=== PATIENT | female | born 1955 | race Asian ===

== ENCOUNTER 2016-12-26 14:18 | Inpatient (IN) | payer OTHER ==
[~2016-12-26] VITALS: Ht 160 cm; Wt 69.4 kg
[2016-12-26 15:34] LABS: BASOPHIL % 0.4 % (0-2); PLATELET COUNT 191 x10^3mcL (130-400); RED CELL DISTRIBUTION WIDTH 13.1 % (11.5-14.5)
[2016-12-26 15:36] LABS: microscopic required? NO
[2016-12-26 15:46] LABS: UA SPECIFIC GRAVITY <=1.005 (1.005-1.035); urine erythrocyte NEGATIVE (NEGATIVE)
[2016-12-26 15:47] LABS: ALBUMIN 3.4 g/dL (3.4-5.0); ALKALINE PHOSPHATASE 105 U/L (46-116); ALT/SGPT 28 U/L (14-59); AMYLASE 52 U/L (25-115); AST/SGOT 18 U/L (15-37); BILIRUBIN TOTAL 0.7 mg/dL (0.20-1.00); CALCIUM 9.1 mg/dL (8.5-10.1); CARBON DIOXIDE 28.4 mmol/L (21-32); CHLORIDE SERUM 102 mmol/L (98-107); CREATININE SERUM 0.7 mg/dL (0.6-1.0); GFR1 > 60 mL/min; GLUCOSE SERUM 168 mg/dL (74-106); LIPASE 228 IU/L (73-393); SODIUM SERUM 139 mmol/L (136-145); TOTAL PROTEIN, SERUM 7.1 g/dL (6.4-8.2)
[2016-12-26 15:48] LABS: CHOLESTEROL 205 mg/dL (<200); HDL CHOLESTEROL 63 mg/dL (40-60)
[2016-12-26 15:49] LABS: POTASSIUM SERUM 2.9 mmol/L (3.5-5.1)
[2016-12-26] MEDS ORDERED: AZITHROMYCIN250 M1 PO (17:10)
[2016-12-26] MEDS ORDERED: ROBAFEN100 MG/5 M PO (17:11)
[2016-12-26] MEDS ORDERED: LEVO-T50 MCG PO (18:53)
[2016-12-26 19:23] VITALS: BP 157/95
[2016-12-26 20:36] VITALS: BP 157/95
[2016-12-26 20:56] LABS: MAGNESIUM 2.1 mg/dL (1.8-2.4); PHOSPHOROUS 2.8 mg/dL (2.5-4.9)
[2016-12-26 21:04] LABS: T3 TOTAL 1.1 ng/mL
[2016-12-26 21:07] LABS: FREE T4 0.84 ng/dL (0.76-1.46); FREE THYROXINE INDEX 1.7 ug/dL (1.4-4.5); T4(THYROXINE) 5.3 ug/dL (4.7-13.3)
[2016-12-27 05:29] VITALS: BP 110/66
[2016-12-27 06:53] LABS: BASOPHIL % 0.1 % (0-2); PLATELET COUNT 200 x10^3mcL (130-400); RED CELL DISTRIBUTION WIDTH 13.3 % (11.5-14.5)
[2016-12-27 07:13] LABS: CARBON DIOXIDE 20.7 mmol/L (21-32); CHLORIDE SERUM 108 mmol/L (98-107); CREATININE SERUM 0.8 mg/dL (0.6-1.0); GFR1 > 60 mL/min; GLUCOSE SERUM 200 mg/dL (74-106); PHOSPHOROUS 3.1 mg/dL (2.5-4.9); POTASSIUM SERUM 3.9 mmol/L (3.5-5.1); SODIUM SERUM 141 mmol/L (136-145)
[2016-12-27 09:30] VITALS: BP 136/66
[2016-12-27 13:27] VITALS: BP 131/74
[2016-12-27 17:05] VITALS: BP 118/60
[2016-12-27 21:33] VITALS: BP 106/56
[2016-12-28 05:28] VITALS: BP 122/65
[2016-12-28 06:52] LABS: CALCIUM 8.7 mg/dL (8.5-10.1); CARBON DIOXIDE 25.3 mmol/L (21-32); CHLORIDE SERUM 109 mmol/L (98-107); CREATININE SERUM 0.7 mg/dL (0.6-1.0); GFR1 > 60 mL/min; GLUCOSE SERUM 154 mg/dL (74-106); POTASSIUM SERUM 3.9 mmol/L (3.5-5.1); SODIUM SERUM 144 mmol/L (136-145)
[2016-12-28 07:04] LABS: BASOPHIL % 0.2 % (0-2); PLATELET COUNT 191 x10^3mcL (130-400); RED CELL DISTRIBUTION WIDTH 13.2 % (11.5-14.5)
[2016-12-28 09:30] VITALS: BP 122/70
[2016-12-28 12:50] VITALS: BP 105/80
[2016-12-28 17:31] VITALS: BP 110/64
[2016-12-28 21:09] VITALS: Ht 160 cm; Wt 69.4 kg
[2016-12-28 22:14] VITALS: BP 116/64
[2016-12-29 06:26] LABS: CALCIUM 8.4 mg/dL (8.5-10.1); CHLORIDE SERUM 110 mmol/L (98-107); CREATININE SERUM 0.8 mg/dL (0.6-1.0); GFR1 > 60 mL/min; GLUCOSE SERUM 90 mg/dL (74-106); MAGNESIUM 2.2 mg/dL (1.8-2.4); PHOSPHOROUS 3.9 mg/dL (2.5-4.9); POTASSIUM SERUM 4.2 mmol/L (3.5-5.1); SODIUM SERUM 144 mmol/L (136-145)
[2016-12-29 06:32] VITALS: BP 135/83
[2016-12-29 06:33] LABS: BASOPHIL % 0.2 % (0-2); PLATELET COUNT 184 x10^3mcL (130-400); RED CELL DISTRIBUTION WIDTH 13.4 % (11.5-14.5)
[2016-12-29 10:03] VITALS: BP 124/76
[2016-12-29 13:56] VITALS: BP 124/76
[2016-12-29 14:14] VITALS: BP 124/78
[2016-12-29] MEDS ORDERED: CLEOCIN HCL300 MG PO (14:14)
[2016-12-29] MEDS ORDERED: LEVAQUIN750 MG PO (14:14)
[2016-12-29] MEDS ORDERED: LAC PO (14:15)
[2016-12-29] MEDS ORDERED: MUCINEX600 MG PO (14:16)
[2016-12-29] MEDS ORDERED: IPRATROPIUM BROM3 M2 HHN (14:17)
[2016-12-29] MEDS ORDERED: ZES10 PO (14:20)
== END 2016-12-29 16:30 | disposition home or self-care (01) | DRG 137 ==
LOC: ED 14:18 → DU 15:03
PROVIDERS: Emergency Medicine; Family Medicine; ADMIT Family Medicine
DX: J69.0 Pneumonitis due to inhalation of food and vomit (principal); J45.901 Unspecified asthma with (acute) exacerbation; I10 Essential (primary) hypertension; E87.6 Hypokalemia; E78.5 Hyperlipidemia, unspecified; R73.03 Prediabetes; E03.9 Hypothyroidism, unspecified; J44.9 Chronic obstructive pulmonary disease, unspecified; Z88.6 Allergy status to analgesic agent; Z88.0 Allergy status to penicillin; Z88.2 Allergy status to sulfonamides; Z98.890 Other specified postprocedural states; R09.02 Hypoxemia
CPT/HCPCS: 36600; 83880; 84439; 94150; J1956; J2920; J2930; J3480; J3490; J7030; J7040; J7613; J7620; J7644; Q0092

== ENCOUNTER 2016-12-31 21:10 | Emergency (ER) | payer OTHER ==
[~2016-12-31 21:10] MED LIST: AZITHROMYCIN250 M1 PO; CLEOCIN HCL300 MG PO; IPRATROPIUM BROM3 M2 HHN; LAC PO; LEVAQUIN750 MG PO; LEVO-T50 MCG PO; MUCINEX600 MG PO; ROBAFEN100 MG/5 M PO; ZES10 PO
[2016-12-31 22:09] LABS: PLATELET COUNT 247 x10^3mcL (130-400); RED CELL DISTRIBUTION WIDTH 13.1 % (11.5-14.5)
[2016-12-31 22:19] LABS: CALCIUM 8.8 mg/dL (8.5-10.1); CARBON DIOXIDE 29.4 mmol/L (21-32); CHLORIDE SERUM 102 mmol/L (98-107); CREATININE SERUM 0.7 mg/dL (0.6-1.0); GFR1 > 60 mL/min; GLUCOSE SERUM 106 mg/dL (74-106); POTASSIUM SERUM 3.9 mmol/L (3.5-5.1); SODIUM SERUM 140 mmol/L (136-145)
[2016-12-31 22:27] LABS: ALBUMIN 3.3 g/dL (3.4-5.0); ALKALINE PHOSPHATASE 98 U/L (46-116); ALT/SGPT 26 U/L (14-59); AST/SGOT 17 U/L (15-37); BASOPHIL 0 % (0-2); BILIRUBIN TOTAL 0.3 mg/dL (0.20-1.00); MONOCYTE 6 % (0-7); SEGMENTED NEUTROPHILS 45 % (37-75); TOTAL PROTEIN, SERUM 6.8 g/dL (6.4-8.2)
[2016-12-31 22:28] LABS: BAND NEUTROPHIL 3 % (0-10); PLATELET MORPHOLOGY PLATELETS NORMAL
[2016-12-31 22:37] LABS: CK-MB 0.8 ng/mL (0-3.6)
[2016-12-31 23:50] VITALS: BP 113/73
== END 2016-12-31 23:50 | disposition home or self-care (01) ==
LOC: ED 21:10
PROVIDERS: Emergency Medicine
DX: J45.909 Unspecified asthma, uncomplicated (principal); Z88.0 Allergy status to penicillin; Z88.2 Allergy status to sulfonamides; Z88.6 Allergy status to analgesic agent
CPT/HCPCS: 83880; J7512; J7613; J7644; Q0092

== ENCOUNTER 2017-10-14 23:07 | Emergency (ER) | payer OTHER ==
[~2017-10-14] VITALS: Ht 160 cm; Wt 62.6 kg
[2017-10-14 23:21] VITALS: Ht 160 cm; Wt 62.6 kg
[2017-10-15 00:06] LABS: BASOPHIL % 0.3 % (0-2); PLATELET COUNT 168 x10^3mcL (130-400); RED CELL DISTRIBUTION WIDTH 14.9 % (11.5-14.5)
[2017-10-15 00:18] LABS: CALCIUM 7.9 mg/dL (8.5-10.1); CARBON DIOXIDE 25.6 mmol/L (21-32); CHLORIDE SERUM 99 mmol/L (98-107); CREATININE SERUM 0.8 mg/dL (0.6-1.0); GFR1 > 60 mL/min; GLUCOSE SERUM 161 mg/dL (74-106); POTASSIUM SERUM 3.7 mmol/L (3.5-5.1); SODIUM SERUM 135 mmol/L (136-145)
[2017-10-15 00:22] LABS: ALBUMIN 3.5 g/dL (3.4-5.0); ALKALINE PHOSPHATASE 79 U/L (46-116); ALT/SGPT 29 U/L (14-59); AST/SGOT 26 U/L (15-37); BILIRUBIN TOTAL 0.3 mg/dL (0.20-1.00); TOTAL PROTEIN, SERUM 6.4 g/dL (6.4-8.2)
[2017-10-15 03:28] VITALS: BP 133/79
== END 2017-10-15 03:28 | disposition home or self-care (01) ==
LOC: ED 23:07
PROVIDERS: Emergency Medicine
DX: J10.1 Influenza due to other identified influenza virus with other respiratory manifestations (principal); B34.9 Viral infection, unspecified; Z88.0 Allergy status to penicillin; Z88.2 Allergy status to sulfonamides; Z88.6 Allergy status to analgesic agent
CPT/HCPCS: 87804; J2270; J2765; J7040

== ENCOUNTER 2019-01-31 23:34 | Emergency (ER) | payer OTHER ==
[~2019-01-31] VITALS: Ht 160 cm; Wt 60.8 kg
[2019-01-31 23:56] VITALS: Ht 160 cm; Wt 60.8 kg
[2019-02-01 01:27] LABS: BASOPHIL % 0.3 % (0-2); PLATELET COUNT 243 x10^3mcL (130-400); RED CELL DISTRIBUTION WIDTH 13.1 % (11.5-14.5)
[2019-02-01 01:36] LABS: CALCIUM 8.8 mg/dL (8.5-10.1); CARBON DIOXIDE 27.7 mmol/L (21-32); CHLORIDE SERUM 106 mmol/L (98-107); CREATININE SERUM 0.7 mg/dL (0.6-1.0); GFR1 > 60 mL/min; GLUCOSE SERUM 123 mg/dL (74-106); POTASSIUM SERUM 3.8 mmol/L (3.5-5.1); SODIUM SERUM 141 mmol/L (136-145)
[2019-02-01 01:40] LABS: ALKALINE PHOSPHATASE 109 U/L (46-116); ALT/SGPT 29 U/L (14-59); AST/SGOT 18 U/L (15-37); BILIRUBIN TOTAL 0.3 mg/dL (0.20-1.00); LIPASE 250 IU/L (73-393); TOTAL PROTEIN, SERUM 7.2 g/dL (6.4-8.2)
[2019-02-01 01:41] LABS: ALBUMIN 3.2 g/dL (3.4-5.0)
[2019-02-01 05:42] VITALS: BP 108/71
== END 2019-02-01 05:42 | disposition home or self-care (01) ==
LOC: ED 23:34
DX: R10.32 Left lower quadrant pain (principal); R19.7 Diarrhea, unspecified; J40 Bronchitis, not specified as acute or chronic; R07.9 Chest pain, unspecified; Z88.0 Allergy status to penicillin; Z88.2 Allergy status to sulfonamides; Z88.6 Allergy status to analgesic agent
CPT/HCPCS: J2270; J2405; J7030; Q0092

== ENCOUNTER 2019-06-27 23:03 | Emergency (ER) | payer OTHER ==
[~2019-06-27] VITALS: Ht 157.5 cm; Wt 60.3 kg
[2019-06-27 23:06] VITALS: Ht 157.5 cm; Wt 60.3 kg
[2019-06-27 23:58] LABS: microscopic required? NO
[2019-06-28 00:29] LABS: UA SPECIFIC GRAVITY <=1.005 (1.005-1.035); urine erythrocyte NEGATIVE (NEGATIVE)
[2019-06-28 00:34] LABS: BASOPHIL % 0.7 % (0-2); PLATELET COUNT 211 x10^3mcL (130-400)
[2019-06-28 00:41] LABS: CALCIUM 8.8 mg/dL (8.5-10.1); CHLORIDE SERUM 108 mmol/L (98-107); CREATININE SERUM 0.7 mg/dL (0.6-1.0); GFR1 > 60 mL/min; GLUCOSE SERUM 112 mg/dL (74-106); POTASSIUM SERUM 3.2 mmol/L (3.5-5.1); SODIUM SERUM 147 mmol/L (136-145)
[2019-06-28 00:46] LABS: ALBUMIN 3.4 g/dL (3.4-5.0); ALKALINE PHOSPHATASE 101 U/L (46-116); ALT/SGPT 34 U/L (14-59); AST/SGOT 25 U/L (15-37); BILIRUBIN TOTAL 0.4 mg/dL (0.20-1.00); TOTAL PROTEIN, SERUM 6.9 g/dL (6.4-8.2)
[2019-06-28 02:11] VITALS: BP 107/59
== END 2019-06-28 02:11 | disposition home or self-care (01) ==
LOC: ED 23:03
PROVIDERS: Emergency Medicine
DX: J45.901 Unspecified asthma with (acute) exacerbation (principal); Z88.0 Allergy status to penicillin; Z88.2 Allergy status to sulfonamides; Z88.6 Allergy status to analgesic agent
CPT/HCPCS: J2930; J7030; J7613; J7644; Q0092

== ENCOUNTER 2019-06-28 15:23 | Emergency (ER) | payer OTHER ==
[~2019-06-28] VITALS: Ht 157.5 cm; Wt 60.3 kg
[2019-06-28 15:38] VITALS: Ht 157.5 cm; Wt 60.3 kg
[2019-06-28 16:49] LABS: BASOPHIL % 0.3 % (0-2); PLATELET COUNT 217 x10^3mcL (130-400); RED CELL DISTRIBUTION WIDTH 13.8 % (11.5-14.5)
[2019-06-28 17:04] LABS: ALBUMIN 3.4 g/dL (3.4-5.0); ALKALINE PHOSPHATASE 99 U/L (46-116); ALT/SGPT 30 U/L (14-59); AST/SGOT 18 U/L (15-37); BILIRUBIN TOTAL 0.41 mg/dL (0.20-1.00); CALCIUM 8.7 mg/dL (8.5-10.1); CARBON DIOXIDE 27.8 mmol/L (21-32); CHLORIDE SERUM 111 mmol/L (98-107); CREATININE SERUM 0.6 mg/dL (0.6-1.0); GFR1 > 60 mL/min; GLUCOSE SERUM 117 mg/dL (74-106); SODIUM SERUM 147 mmol/L (136-145)
[2019-06-28 20:10] VITALS: BP 119/65
== END 2019-06-28 20:10 | disposition home or self-care (01) ==
LOC: ED 15:23
PROVIDERS: Emergency Medicine
DX: J45.901 Unspecified asthma with (acute) exacerbation (principal); Z88.0 Allergy status to penicillin; Z88.2 Allergy status to sulfonamides; Z88.6 Allergy status to analgesic agent
CPT/HCPCS: J3475; J7030; J7512; J7613; J7644

== ENCOUNTER 2019-08-12 03:46 | Emergency (ER) | payer OTHER ==
[~2019-08-12] VITALS: Ht 157.5 cm; Wt 56.7 kg
[2019-08-12 03:53] VITALS: Ht 157.5 cm; Wt 56.7 kg
[2019-08-12 05:15] LABS: CALCIUM 8.7 mg/dL (8.5-10.1); CHLORIDE SERUM 112 mmol/L (98-107); CREATININE SERUM 0.8 mg/dL (0.6-1.0); GFR1 > 60 mL/min; GLUCOSE SERUM 133 mg/dL (74-106); POTASSIUM SERUM 4.3 mmol/L (3.5-5.1); SODIUM SERUM 148 mmol/L (136-145)
[2019-08-12 05:15] LABS: BASOPHIL % 0.3 % (0-2); PLATELET COUNT 228 x10^3mcL (130-400); RED CELL DISTRIBUTION WIDTH 13.6 % (11.5-14.5)
[2019-08-12 06:16] VITALS: BP 114/62
[2019-08-12] MEDS ORDERED: VENTOLIN H0.09 MG/A1 INH (22:32)
[2019-08-12] MEDS ORDERED: PREDNISONE20 MG PO (22:33)
[2019-08-12] MEDS ORDERED: CIPRO500 MG PO (22:33)
[2019-08-12] MEDS ORDERED: TESSALON PERLE100 MG PO (22:33)
[2019-08-12] MEDS ORDERED: TYLENOL WITH CO1 TA2 PO (22:34)
== END 2019-08-12 06:53 | disposition home or self-care (01) ==
LOC: ED 03:46
PROVIDERS: Emergency Medicine
DX: J40 Bronchitis, not specified as acute or chronic (principal); Z88.0 Allergy status to penicillin; Z88.2 Allergy status to sulfonamides; Z88.6 Allergy status to analgesic agent
CPT/HCPCS: 83880; 87804; J2930; J7613; J7644; Q0092

== ENCOUNTER 2019-08-12 20:02 | Inpatient (IN) | payer OTHER ==
[~2019-08-12] VITALS: Ht 160 cm; Wt 59.2 kg
[2019-08-12 20:08] VITALS: Ht 160 cm; Wt 59.2 kg
--- NOTE | 2019-08-12 20:30 | NUR ---
PT PRESENTS TO ED WITH C/O SOB X3 HRS. PT WAS SEEN LAST NIGHT WITH THE SAME COMPLAINT AND WAS DISCHARGED WITH THE DIAGNOSIS OF ACUTE BRONCHITIS AND SENT HOME WITH PREDNISONE, AND COUGH MEDICATION. PT RECENTLY HAD SINUS SURGERY ON AUG 01 AND IS TAKING PAIN MEDICATION AND ANTIBIOTICS AT HOME. PT REPORTS TAKING ALL MEDICATIONS PRESCRIBED. PT NOTED WITH DIMINISHED LUNG SOUNDS TO THE L LOBES AND WHEEZING TO THE R LOBES. PT O2 SAT 92% ON RA, PLACED ON 2L O2 VIA NASAL CANNULA AND O2 SAT IMPROVED TO 96% AT THIS TIME. PT RESTING COMFORTABLY, NOTED WITH A PRODUCTIVE COUGH THAT PRODUCES PHLEGM. PT APPEARS COMFORTABLE AT THIS TIME WITH EVEN, UNLABORED RESPIRATIONS. PT PLACED ON FULL CM. PT AOX4, RESP EVEN AND UNLABORED, PT DAUGHTER AT BEDSIDE AT THIS TIME. DR BUENO AT BEDSIDE FOR MSE.
--- NOTE | 2019-08-12 21:00 | NUR ---
RT AT BEDSIDE FOR BREATHING TX.
[2019-08-12 21:11] LABS: BASOPHIL % 0.4 % (0-2); PLATELET COUNT 237 x10^3mcL (130-400); RED CELL DISTRIBUTION WIDTH 13.6 % (11.5-14.5)
[2019-08-12 21:17] LABS: CALCIUM 8.7 mg/dL (8.5-10.1); CARBON DIOXIDE 23.5 mmol/L (21-32); CHLORIDE SERUM 111 mmol/L (98-107); CREATININE SERUM 0.6 mg/dL (0.6-1.0); GFR1 > 60 mL/min; GLUCOSE SERUM 131 mg/dL (74-106); POTASSIUM SERUM 3.5 mmol/L (3.5-5.1); SODIUM SERUM 144 mmol/L (136-145)
[2019-08-12 21:21] LABS: ALBUMIN 3.4 g/dL (3.4-5.0); ALKALINE PHOSPHATASE 86 U/L (46-116); ALT/SGPT 24 U/L (14-59); AST/SGOT 15 U/L (15-37); BILIRUBIN TOTAL 0.6 mg/dL (0.20-1.00)
[2019-08-12 22:26] LABS: microscopic required? NO
[2019-08-12] MEDS ORDERED: VENTOLIN H0.09 MG/A1 INH (22:32)
[2019-08-12] MEDS ORDERED: CIPRO500 MG PO (22:33)
[2019-08-12] MEDS ORDERED: TESSALON PERLE100 MG PO (22:33)
[2019-08-12] MEDS ORDERED: PREDNISONE20 MG PO (22:33)
[2019-08-12] MEDS ORDERED: TYLENOL WITH CO1 TA2 PO (22:34)
[2019-08-12 22:39] LABS: urine erythrocyte NEGATIVE (NEGATIVE)
[2019-08-12 22:50] LABS: AMPHETAMINE QUAL UR NONE DETECTED (See below)
[2019-08-12 22:53] LABS: CHOLESTEROL/HDL RATIO 2.8
--- NOTE | 2019-08-12 23:23 | NUR ---
PT RESTING IN A POSITION OF COMFORT, AOX4, RESP EVEN AND UNLABORED, NO ACUTE DISTRESS NOTED. PT REMAINS ON 2L O2. DAUGHTER AT BEDSIDE.
--- NOTE | 2019-08-13 00:07 | NUR ---
PT TRANSFERRED TO [facility] BY [facility] BY BECKY ZAYAS AND CHILO EMT. PT ON CM FOR TRANSFER. PT AOX4, RESP EVEN AND UNLABORED, NO ACUTE DISTRESS NOTED. PT ACCEPTED BY RN TO ASSUME PT CARE.
[2019-08-13 00:15] VITALS: BP 132/80
--- NOTE | 2019-08-13 00:19 | NUR ---
RECEIVED PT FROM ED VIA AYO. ORIENTED PT TO ROOM AND SURROUNDINGS. IV NOTED TO LAC PATENT AND INTACT. TELE 20 PLACED ON PT READING NSR. INSTRUCTED PT ON THE USE OF CALL LIGHT FOR ASSISTANCE. ENDORSED PT TO PRIMARY NURSE SOPHY
--- NOTE | 2019-08-13 00:30 | NUR ---
PT AAOX4 DENIES AYALA/DIZZINESS. NO SOB NOTED. PT CONT TO HAVE COUGH. PT ON RA 02SAT 95%. DENIES ANY CHEST PAIN/PRESSURE. TELE #20 NSR. IV LAC PATENT. PT AMBULATORY. NO SIGNS OF DISTRESS. DAUGHTER AT BEDSIDE. CALL BUTTON WITHIN REACH. SAFETY PRECAUTIONS IN PLACE. WILL CONTINUE TO MONITOR.
--- NOTE | 2019-08-13 02:13 | NUR ---
PT RESTING. NO SIGNS OF DISTRESS NOTED. CALL BUTTON WITHIN REACH. SAFETY PRECAUTIONS IN PLACE. WILL CONTINUE TO MONITOR.
[2019-08-13 04:50] VITALS: BP 107/68
--- NOTE | 2019-08-13 05:16 | NUR ---
PT SLEPT ON AND OFF THROUGHOUT THE NIGHT. NO SIGNS OF DISTRESS. PT ON 2L/MIN NO SOB NOTED. PT WHEEZING AT TIMES. DENIES SOB. RT PROTOCOL. IV PATENT, INFUSING WELL. PT AMBULATORY. NO SIGNS OF DISTRESS. CALL BUTTON WITHIN REACH. SAFETY PRECAUTIONS IN PLACE. WILL CONTINUE TO MONITOR AND ENDORSE CARE TO DAY SHIFT RN.
[2019-08-13 06:31] LABS: CALCIUM 8.3 mg/dL (8.5-10.1); CARBON DIOXIDE 23.4 mmol/L (21-32); CHLORIDE SERUM 111 mmol/L (98-107); CREATININE SERUM 0.7 mg/dL (0.6-1.0); GFR1 > 60 mL/min; GLUCOSE SERUM 162 mg/dL (74-106); PHOSPHOROUS 4.4 mg/dL (2.5-4.9); POTASSIUM SERUM 3.6 mmol/L (3.5-5.1); SODIUM SERUM 144 mmol/L (136-145)
[2019-08-13 07:00] LABS: BASOPHIL % 0.1 % (0-2); PLATELET COUNT 231 x10^3mcL (130-400); RED CELL DISTRIBUTION WIDTH 13.6 % (11.5-14.5)
--- NOTE | 2019-08-13 07:20 | NUR ---
SEEN IN BED AAOX4. SPEAKS SLOVENIAN, SOME UKRAINIAN. BREATHING E/U ON O2 2LPM N/C, O2SAT 97% AT THIS TIME. TELE#20 NSR. DENIES PAIN. ENCOURAGED TO USE I.S. AT BEDSIDE WHEN AWAKE X10 PER HOUR. IVF NS TO LAC AT 100ML/HR INFUSING WELL. CALL LIGHT PLACED WITHIN EASY REACH. SIDERAILS UP X2.
--- NOTE | 2019-08-13 07:22 | NUR ---
PT RESTING. NO SIGNS OF DISTRESS NOTED. CALL BUTTON WITHIN REACH. SAFETY PRECAUTIONS IN PLACE. ENDORSED CARE TO DAY SHIFT RN, ALL QUESTIONS ADDRESSED.
[2019-08-13 08:02] VITALS: BP 130/81
--- NOTE | 2019-08-13 09:40 | NUR ---
DOCTOR [place] AND MEDICAL TEAM AT BEDSIDE FOR AM ROUND. PATIENT AND PATIENT'S DAUGHTER MADE AWARE OF CURRENT CONDITION AND PLAN OF CARE.
--- NOTE | 2019-08-13 11:39 | NUR ---
SEEN BY DOCTOR
[2019-08-13 12:16] VITALS: BP 125/67
[2019-08-13 16:50] VITALS: BP 134/79
--- NOTE | 2019-08-13 19:15 | NUR ---
CARE ASSUMED FROM OUTGOING RN. PT RESTING COMFORTABLY IN BED. FAMILY AT BEDSIDE. NO ACUTE DISTRESS NOTED. EVEN AND UNLABORED RESPIRATION ON 2LNC. ON TELE# 20 READING SR 93. IV PATENT AND INTACT, WILL REPLACE IV FLUIDS. NO C/O PAIN AT THIS TIME. BED IN LOWEST POSITION. SIDE RAILS UPX2. CALL LIGHT WITHIN REACH. WILL CONTINUE TO MONITOR.
--- NOTE | 2019-08-13 19:25 | NUR ---
NO ANY DISTRESS THROUGHOUT SHIFT. VSS. ALL SCHEDULED MEDS GIVEN. RT PER PROTOCAL. BRP.
[2019-08-13 19:50] VITALS: BP 127/67
--- NOTE | 2019-08-13 21:14 | NUR ---
RT AT BEDSIDE S/P BREATHING TX, RECHECKED O2 SAT ON RA, 98%. NO C/O SOB. EXPLAINED TO PT, WILL STOP O2 AT THIS TIME, IF SOB OCCURS, WILL REAPPLY O2. PT VERBALIZED UNDERSTANDING. PT REFUSED ANGELA, STATES HAVING BM THIS AM. WILL CONTINUE TO MONITOR.
--- NOTE | 2019-08-14 00:10 | NUR ---
PT RESTING COMFORTABLY IN BED. AMBULATED TO BATHROOM AND BACK, TOLERATED WELL. ABLE TO URINATE WITHOUT ANY DIFFICULTY. C/O PRODUCTIVE COUGH, NO C/O SOB. EVEN AND UNLABORED RESPIRATIONS ON RA. ON TELE# 20 READING SR 71, HR WENT UP TO 106 WHILE AMBULATING. BED IN LOWEST POSITION. SIDE RAILS UPX2. CALL LIGHT WITHIN REACH. WILL CONTINUE TO MONITOR.
--- NOTE | 2019-08-14 02:55 | NUR ---
PT C/O SOB. O2 SAT CHECKED 95% ON RA, EXP WHEEZES HEARD. PLACED ON 1LNC PER PT REQUEST, FEELING BETTER O2 SAT 97%. WILL CONTINUE TO MONITOR.
[2019-08-14 05:03] VITALS: BP 128/74
[2019-08-14 06:41] LABS: PLATELET COUNT 237 x10^3mcL (130-400); RED CELL DISTRIBUTION WIDTH 13.8 % (11.5-14.5)
--- NOTE | 2019-08-14 06:48 | NUR ---
PT SLEPT COMFORTABLY IN INTERVALS THROUGHOUT THE SHIFT. ALL NEEDS TENDED TO AND MET. EVEN AND UNLABORED RESPIRATIONS ON 1LNC. ON TELE# 20 READING NSR. IV PATENT AND INTACT RUNNING FLUIDS PER EMAR. NO C/O PAIN. BED IN LOWEST POSITION. SIDE RAILS UPX2. CALL LIGHT WITHIN REACH. WILL ENDORSE TO ONCOMING SHIFT.
[2019-08-14 07:05] LABS: CALCIUM 8.5 mg/dL (8.5-10.1); CARBON DIOXIDE 24.3 mmol/L (21-32); CHLORIDE SERUM 112 mmol/L (98-107); CREATININE SERUM 0.6 mg/dL (0.6-1.0); GFR1 > 60 mL/min; GLUCOSE SERUM 114 mg/dL (74-106); MAGNESIUM 2.6 mg/dL (1.8-2.4); PHOSPHOROUS 3.8 mg/dL (2.5-4.9); POTASSIUM SERUM 3.8 mmol/L (3.5-5.1); SODIUM SERUM 146 mmol/L (136-145)
--- NOTE | 2019-08-14 07:05 | NUR ---
RECEIVED REPORT FROM MICHELLE RN AT BEDSIDE, PT IN BED IN NO ACUTE DISTRESS, RESP TX IN PLACE, TOLERATED WELL
--- NOTE | 2019-08-14 07:25 | NUR ---
PT SITTING IN BED, IN NO ACUTE DISTRESS, VERBAL, ABLE TO MAKE NEEDS KNOWN, CALM AND COOPERATIVE W/ POC, PERRLA, NO REDNESS/DRAINAGE, NO FACIAL DROOP/SLURRED SPEECH, REG DIET, RESP EVEN, LUNGS CTA, OCCASIONALL WHEEZING, 1L/MIN, NC, 97%, RT PROTOCOL, NO SOB/COUGH AT THIS TIME, TELE #20, NSR, HR-76, DENIED CP/PALPITATION/AYALA, DENIED N/V/D, ABD FLAT AND NON-TENDER TO TOUCH, BS ACTIVE X 4, AMBULATORY, CONTINENT, PALP PULSES, CAP REFILL < 3S, TRACE EDEMA BLE, SCDs AT BEDSIDE, IV PATENT AND INFUSING WELL, DRESSING CDI, SKIN C/D/W, SEE SKIN ASSESSMENT, ALL NEEDS ADDRESSED AT THIS TIME, SAFETY PROTOCOL FOLLOWED, CONTINUE TO MONITOR
[2019-08-14 08:01] VITALS: BP 133/56
[2019-08-14 08:14] LABS: BASOPHIL % 0 % (0-2)
--- NOTE | 2019-08-14 09:24 | NUR ---
AM MED GIVEN PER MD ORDER VIA EMAR, TOLERATED WELL, NO ASE NOTED AT THIS TIME, EDUCATED PT R/T MEDS, ASE AND MONITOR, VERBALLY UNDERSTANDING, ALL NEEDS ADDRESSED AT THIS TIME, CONTINUE TO MONITOR
--- NOTE | 2019-08-14 10:42 | NUR ---
PER ASSOCIATE WEB DEVELOPER DAVID VAZQUEZ, DC TELE AND O2, O2 SAT NOTED 96% AT RA, NO SOB/COUGH, DENIED CP/PALPITATION, PT RESTING IN BED IN NO ACUTE DISTRESS, TELE #20 REMOVED AND RETURNED TO MICHELLE GILLESPIE MT TO MONITOR
[2019-08-14 11:38] VITALS: BP 133/56
[2019-08-14] MEDS ORDERED: LEVOFLOXACIN500 M1 PO (12:02)
[2019-08-14] MEDS ORDERED: PREDNISONE20 MG PO (12:02)
[2019-08-14] MEDS ORDERED: SINGULAIR10 MG PO (12:02)
[2019-08-14] MEDS ORDERED: BREO ELLIPTA1 POW IH (12:03)
[2019-08-14 12:08] VITALS: BP 115/51
--- NOTE | 2019-08-14 13:28 | NUR ---
DC PAPER SIGNED AND KEPT IN CHART, IV REMOVED, IV CATH TIP INTACT, NO ACTIVE BLEEDING NOTED, PT MADE AWARE OF NEW PRESCRIPTION FAX TO [facility], SAID WILL P/U MEDs AFTER DC PRIOR GOING HOME, PT MADE AWARE OF SCHEDULED APPOINTMENT W/ PCP AND PT STATED IT'S HER RESPONSIBILITY TO F/U WITH PCP W/IN 3-4 DAYS AFTER DC HOME, QUESTION ASKED AND ANSWERED, NO FURTHER CONCERN NEEDED AT THIS TIME, PT SAID DAUGHTER WILL P/U PT AROUND 4-5PM, PT SAID SHE'S GOING HOME AFTER DC AND LIVE WITH DAUGHTER, PT WILL BE ASSISTED BY NURING STAFFS TO LOBBY VIA WC, PT IN NO ACUTE RESP DISTRESS AT THIS TIME
--- NOTE | 2019-08-14 13:40 | NUR ---
DAUGHTER CALLED AND SAID GELY P/U PT IN 30 MINS, PT MADE AWARE, ASSISTED PT TO CHANGED CLOTHES, PT IN NO ACUTE DISTRESS
== END 2019-08-14 14:16 | disposition home or self-care (01) | DRG 141 ==
LOC: ED 20:02 → DU 22:03 → MU 08-14 10:45
PROVIDERS: Emergency Medicine; ADMIT Internal Medicine
DX: J45.901 Unspecified asthma with (acute) exacerbation (principal); E83.51 Hypocalcemia; E87.8 Other disorders of electrolyte and fluid balance, not elsewhere classified; D63.8 Anemia in other chronic diseases classified elsewhere; E03.9 Hypothyroidism, unspecified; E78.5 Hyperlipidemia, unspecified; Z88.0 Allergy status to penicillin; Z88.2 Allergy status to sulfonamides; Z88.6 Allergy status to analgesic agent
CPT/HCPCS: 83880; 94150; G0378; J1956; J2920; J2930; J7030; J7620; Q0092

== ENCOUNTER 2019-12-27 23:24 | Emergency (ER) | payer OTHER ==
[~2019-12-27] VITALS: Ht 160 cm; Wt 62.6 kg
[~2019-12-27 23:24] MED LIST changes: +BREO ELLIPTA1 POW IH; +CIPRO500 MG PO; +LEVOFLOXACIN500 M1 PO; +PREDNISONE20 MG PO; +SINGULAIR10 MG PO; +TESSALON PERLE100 MG PO; +TYLENOL WITH CO1 TA2 PO; +VENTOLIN H0.09 MG/A1 INH
[2019-12-27 23:31] VITALS: Ht 160 cm; Wt 62.6 kg
[2019-12-28 02:03] VITALS: BP 131/68
== END 2019-12-28 02:03 | disposition home or self-care (01) ==
LOC: ED 23:24
DX: T78.40XA Allergy, unspecified, initial encounter (principal); J45.909 Unspecified asthma, uncomplicated; Z88.0 Allergy status to penicillin; Z88.2 Allergy status to sulfonamides; Z88.6 Allergy status to analgesic agent; X58.XXXA Exposure to other specified factors, initial encounter
CPT/HCPCS: J1200; J2930; J3490; J7613; Q0092

== ENCOUNTER 2020-12-20 00:15 | Emergency (ER) | payer OTHER ==
[~2020-12-20] VITALS: Ht 160 cm; Wt 60.8 kg
[~2020-12-20 00:15] MED LIST changes: +AZITHROMYCIN1 GM PO; +PRE20 PO
[2020-12-20 00:28] VITALS: Ht 160 cm; Wt 60.8 kg
[2020-12-20 00:50] LABS: BASOPHIL % 0.8 % (0.2-1.3); PLATELET COUNT 229 x10^3mcL (179-408); RED CELL DISTRIBUTION WIDTH 13.6 % (12.3-17.7)
[2020-12-20 00:59] LABS: CALCIUM 8.8 mg/dL (8.5-10.1); CARBON DIOXIDE 28.5 mmol/L (21-32); CHLORIDE SERUM 105 mmol/L (98-107); CREATININE SERUM 0.7 mg/dL (0.6-1.0); GFR1 > 60 mL/min; GLUCOSE SERUM 146 mg/dL (74-106); POTASSIUM SERUM 3.2 mmol/L (3.5-5.1); SODIUM SERUM 143 mmol/L (136-145)
[2020-12-20 01:03] LABS: ALBUMIN 3.4 g/dL (3.4-5.0); ALKALINE PHOSPHATASE 71 U/L (46-116); ALT/SGPT 23 U/L (14-59); AMYLASE 59 U/L (25-115); AST/SGOT 14 U/L (15-37); BILIRUBIN TOTAL 0.5 mg/dL (0.20-1.00); LIPASE 234 IU/L (73-393); TOTAL PROTEIN, SERUM 6.3 g/dL (6.4-8.2)
[2020-12-20] MEDS ORDERED: LEV500 PO (01:06)
[2020-12-20 01:28] VITALS: BP 137/81
== END 2020-12-20 01:28 | disposition home or self-care (01) ==
LOC: ED 00:15
PROVIDERS: Emergency Medicine
DX: K52.9 Noninfective gastroenteritis and colitis, unspecified (principal); J45.909 Unspecified asthma, uncomplicated; J44.9 Chronic obstructive pulmonary disease, unspecified; Z88.0 Allergy status to penicillin; Z88.2 Allergy status to sulfonamides; Z88.6 Allergy status to analgesic agent
CPT/HCPCS: 87046; 87046-59

== ENCOUNTER 2020-12-20 18:03 | Emergency (ER) | payer OTHER ==
[~2020-12-20] VITALS: Ht 149.9 cm; Wt 59.4 kg
[~2020-12-20 18:03] MED LIST changes: +LEV500 PO
[2020-12-20 18:36] VITALS: Ht 149.9 cm; Wt 59.4 kg
[2020-12-20 19:30] LABS: BASOPHIL % 0.4 % (0.2-1.3); CALCIUM 9.3 mg/dL (8.5-10.1); CARBON DIOXIDE 29.6 mmol/L (21-32); CHLORIDE SERUM 106 mmol/L (98-107); CREATININE SERUM 0.8 mg/dL (0.6-1.0); GFR1 > 60 mL/min; GLUCOSE SERUM 115 mg/dL (74-106); PLATELET COUNT 237 x10^3mcL (179-408); RED CELL DISTRIBUTION WIDTH 13.8 % (12.3-17.7); SODIUM SERUM 145 mmol/L (136-145)
[2020-12-20 19:42] LABS: ALBUMIN 3.6 g/dL (3.4-5.0); ALKALINE PHOSPHATASE 72 U/L (46-116); ALT/SGPT 21 U/L (14-59); AST/SGOT 16 U/L (15-37); BILIRUBIN TOTAL 0.6 mg/dL (0.20-1.00); LIPASE 173 IU/L (73-393); T4(THYROXINE) 6.7 ug/dL (4.7-13.3); TOTAL PROTEIN, SERUM 6.8 g/dL (6.4-8.2)
[2020-12-20 21:31] VITALS: BP 130/68
== END 2020-12-20 21:27 | disposition home or self-care (01) ==
LOC: ED 18:03
PROVIDERS: Emergency Medicine
DX: K52.9 Noninfective gastroenteritis and colitis, unspecified (principal); K21.9 Gastro-esophageal reflux disease without esophagitis; J45.909 Unspecified asthma, uncomplicated